=== PATIENT | male | born 1995 | race African-American/Black ===

== ENCOUNTER 2017-07-01 18:01 | Emergency (ER) | payer BC, OTHER ==
--- NOTE | 2017-07-01 19:39 | EDPHYS ---
Physician Documentation [facility] Name: Sudarshan Loya Age: 22 yrs Sex: Male : 1995 Arrival Date: 07/01/2017 Time: 18:06 Bed 13 Private MD: None, None ED Physician Charlie De Leon HPI: 07/01 20:17 This 22 yrs old Black Male presents to ER via Ambulatory with complaints of Sore Throat.snw 20:17 The patient presents with sore throat. The patient describes throat pain as scratchy. snw Onset: The symptoms/episode began/occurred suddenly, 2 day(s) ago, and became persistent. Severity of symptoms: At their worst the symptoms were moderate. Modifying factors: The symptoms are alleviated by nothing, the symptoms are aggravated by swallowing, Patient's oral intake status: good. Associated signs and symptoms: The patient has no apparent associated signs or symptoms. The patient has not experienced similar symptoms in the past. The patient has not recently seen a physician. Historical: - Allergies: 18:09 No Known Allergies; hj - Home Meds: 18:09 None [Active]; hj - PMHx: 18:09 None; hj - PSHx: 18:09 wrist; hj - Immunization history:: Adult Immunizations up to date. - Social history:: Smoking status: Patient/guardian denies using tobacco. ROS: 20:14 Constitutional: Negative for fever, chills, and weight loss, Eyes: Negative for injury, snw pain, redness, and discharge, ENT: Negative for injury and discharge, + congestion down posterior throat Neck: Negative for injury, pain, and swelling, Cardiovascular: Negative for chest pain, palpitations, and edema, Respiratory: Negative for shortness of breath, cough, wheezing, and pleuritic chest pain, Abdomen/GI: Negative for abdominal pain, nausea, vomiting, diarrhea, and constipation, Back: Negative for injury and pain, : Negative for injury, bleeding, discharge, and swelling, MS/Extremity: Negative for injury and deformity, Skin: Negative for injury, rash, and discoloration, Neuro: Negative for headache, weakness, numbness, tingling, and seizure. Exam: 20:14 Constitutional: This is a well developed, well nourished patient who is awake, alert, snw and in no acute distress. Head/Face: Normocephalic, atraumatic. Eyes: Pupils equal round and reactive to light, extra-ocular motions intact. Lids and lashes normal. Conjunctiva and sclera are non-icteric and not injected. Cornea within normal limits. Periorbital areas with no swelling, redness, or edema. Neck: Trachea midline, no thyromegaly or masses palpated, and no cervical lymphadenopathy. Supple, full range of motion without nuchal rigidity, or vertebral point tenderness. No Meningismus. Chest/axilla: Normal chest wall appearance and motion. Nontender with no deformity. No lesions are appreciated. Cardiovascular: Regular rate and rhythm with a normal S1 and S2. No gallops, murmurs, or rubs. Normal PMI, no JVD. No pulse deficits. Respiratory: Lungs have equal breath sounds bilaterally, clear to auscultation and percussion. No rales, rhonchi or wheezes noted. No increased work of breathing, no retractions or nasal flaring. Abdomen/GI: Soft, non-tender, with normal bowel sounds. No distension or tympany. No guarding or rebound. No evidence of tenderness throughout. Back: No spinal tenderness. No costovertebral tenderness. Full range of motion. Skin: Warm, dry with normal turgor. Normal color with no rashes, no lesions, and no evidence of cellulitis. MS/ Extremity: Pulses equal, no cyanosis. Neurovascular intact. Full, normal range of motion. Neuro: Awake and alert, GCS 15, oriented to person, place, time, and situation. Cranial nerves II-XII grossly intact. Motor strength 5/5 in all extremities. Sensory grossly intact. Cerebellar exam normal. Normal gait. 20:14 ENT: External ear(s): are unremarkable, TM's: are normal, Nose: is normal, Mouth: is normal, Posterior pharynx: Uvula: edematous, erythema, Voice: is normal. Vital Signs: 18:10 BP 135 / 81; Pulse 75; Resp 18; Temp 98.4(TE); Pulse Ox 97% on R/A; Weight 129.27 kg; hj Height 6 ft. 1 in. (185.42 cm); Pain 1/10; 19:10 BP 137 / 78; Pulse 71; Resp 18; Pulse Ox 99% ; mh5 20:03 BP 134 / 60; Pulse 69; Resp 18; Pulse Ox 97% ; aj1 18:10 Body Mass Index 37.60 (129.27 kg, 185.42 cm) MDM: 19:26 Patient medically screened. snw 20:16 Data reviewed: vital signs, nurses notes. Data interpreted: Pulse oximetry: on room air snw is 97 %. Interpretation: normal. Counseling: I had a detailed discussion with the patient and/or guardian regarding: the historical points, exam findings, and any diagnostic results supporting the discharge/admit diagnosis, lab results, the need for outpatient follow up, for definitive care, to return to the emergency department if symptoms worsen or persist or if there are any questions or concerns that arise at home. Special discussion: Based on the history and exam findings, there is no indication for further emergent testing or inpatient evaluation. I discussed with the patient/guardian the need to see the ENT specialist for further evaluation of the symptoms. I discussed with the patient/guardian the need to see the primary care provider for further evaluation of the symptoms. 07/01 18:11 Order name: Strep; Complete Time: 19:02 07/01 18:47 Order name: Throat Culture EDMS Administered Medications: 19:58 Drug: predniSONE 60 mg Route: PO; bs1 19:58 Drug: Pepcid 20 mg Route: PO; bs1 19:58 Drug: ZyrTEC - Cetirizine 10 mg Route: PO; bs1 Disposition: 07/01/17 19:38 Discharged to Home. Impression: Acute pharyngitis. - Condition is Stable. - Discharge Instructions: Pharyngitis, Salt Water Gargle, Rehydration, Adult. - Prescriptions for Prednisone 20 mg Oral Tablet - take 1 tablet by ORAL route every 12 hours for 5 days; 10 tablet. Zyrtec 10 mg Oral Tablet - take 1 tablet by ORAL route once daily As needed; 20 tablet. - Medication Reconciliation Form, Thank You Letter, Antibiotic Education, Prescription Opioid Use form. - Follow up: Private Physician; When: 2 - 3 days; Reason: Recheck today's complaints, Continuance of care, Re-evaluation by your physician. Follow up: Emergency Department; When: As needed; Reason: Worsening of condition. Addendum: 07/04/2017 06:21 Co-signature as Attending Physician, Charlie De Leon MD Available for consultation at p s1 all times. . Signatures: Dispatcher [employer] Codie Abrahma RN RN aj1 Fany Zambrano, FRONT END WEB DEVELOPER-C FRONT END WEB DEVELOPER-Csnw Juan J Cazares RN RN hj Charlie De Leon MD MD ps1 Yennifer Starkey RN RN bs1
--- NOTE | 2017-07-01 19:39 | ER ---
Nurse's Notes [facility] Name: Sudarshan Loya Age: 22 yrs Sex: Male : 1995 Arrival Date: 07/01/2017 Time: 18:06 Bed 13 Private MD: None, None Diagnosis: Acute pharyngitis Presentation: 07/01 18:08 Presenting complaint: Patient states: i have pain on my throat since Thursday, like hj sore throat; denies fever and chills;. Transition of care: patient was not received from another setting of care. Onset of symptoms was July 01, 2017. Initial Sepsis Screen: Does the patient meet any 2 criteria? No. Patient's initial sepsis screen is negative. Does the patient have a suspected source of infection? No. Patient's initial sepsis screen is negative. Care prior to arrival: None. 18:08 Method Of Arrival: Ambulatory 18:08 Acuity: DARWIN 4 hj Triage Assessment: 18:09 General: Appears in no apparent distress. uncomfortable, Behavior is calm, cooperative, hj appropriate for age. Pain: Complains of pain in throat. EENT: Reports pain when swallowing. Historical: - Allergies: 18:09 No Known Allergies; hj - Home Meds: 18:09 None [Active]; hj - PMHx: 18:09 None; hj - PSHx: 18:09 wrist; hj - Immunization history:: Adult Immunizations up to date. - Social history:: Smoking status: Patient/guardian denies using tobacco. Screenin:15 Abuse screen: Denies threats or abuse. Denies injuries from another. Nutritional aj1 screening: No deficits noted. Tuberculosis screening: No symptoms or risk factors identified. Fall Risk None identified. Assessment: 18:10 Respiratory: Airway is patent Respiratory effort is even, unlabored, Respiratory hj pattern is regular, symmetrical, Breath sounds are clear. EENT: Throat. 19:15 General: Appears in no apparent distress. uncomfortable, Behavior is calm, cooperative, aj1 appropriate for age. Pain: Complains of pain in left aspect of posterior pharynx and right aspect of posterior pharynx Pain does not radiate. Pain currently is 6 out of 10 on a pain scale. Neuro: Level of Consciousness is awake, alert, obeys commands, Oriented to person, place, time, situation, Speech is normal, Facial symmetry appears normal. Cardiovascular: Patient's skin is warm and dry. Respiratory: Airway is patent Respiratory effort is even, unlabored, Respiratory pattern is regular, symmetrical, Breath sounds are clear bilaterally. GI: No signs and/or symptoms were reported involving the gastrointestinal system. : No signs and/or symptoms were reported regarding the genitourinary system. EENT: Throat is reddened has enlarged tonsils bilaterally. Derm: No signs and/or symptoms reported regarding the dermatologic system. Skin is pink, warm \T\ dry. normal. Musculoskeletal: No signs and/or symptoms reported regarding the musculoskeletal system. Circulation, motion, and sensation intact. 20:03 Reassessment: Patient appears in no apparent distress at this time. No changes from [facility] previously documented assessment. Patient and/or family updated on plan of care and expected duration. Pain level reassessed. Patient is alert, oriented x 3, equal unlabored respirations, skin warm/dry/pink. Vital Signs: 18:10 BP 135 / 81; Pulse 75; Resp 18; Temp 98.4(TE); Pulse Ox 97% on R/A; Weight 129.27 kg; hj Height 6 ft. 1 in. (185.42 cm); Pain 1/10; 19:10 BP 137 / 78; Pulse 71; Resp 18; Pulse Ox 99% ; mh5 20:03 BP 134 / 60; Pulse 69; Resp 18; Pulse Ox 97% ; aj1 18:10 Body Mass Index 37.60 (129.27 kg, 185.42 cm) ED Course: 18:06 Patient arrived in ED. mr 18:06 None, None is Private Physician. mr 18:09 Triage completed. hj 18:10 Arm band placed on right wrist. hj 19:01 Fany Zambrano FNP-C is PHCP. snw 19:01 Charlie De Leon MD is Attending Physician. snw 19:13 Codie Hidalgo, PERRY is Primary Nurse. aj1 19:14 Charlie De Leon MD is Attending Physician. snw 19:15 Patient has correct armband on for positive identification. Bed in low position. Call aj1 light in reach. Side rails up X 1. 19:15 No provider procedures requiring assistance completed. aj1 20:03 Patient did not have IV access during this emergency room visit. aj1 Administered Medications: 19:58 Drug: predniSONE 60 mg Route: PO; bs1 19:58 Drug: Pepcid 20 mg Route: PO; bs1 19:58 Drug: ZyrTEC - Cetirizine 10 mg Route: PO; bs1 Outcome: 19:38 Discharge ordered by . snw 20:12 Discharged to home ambulatory. aj1 20:12 Condition: good 20:12 Discharge instructions given to patient, Instructed on discharge instructions, follow up and referral plans. medication usage, Demonstrated understanding of instructions, follow-up care, medications, Prescriptions given X 2. 20:13 Patient left the ED. aj1 Signatures: Codie Hidalgo RN RN aj1 Fany Zambrano, VICE PRESIDENT OF RECRUITING-C VICE PRESIDENT OF RECRUITING-CsnJanina Mcmillan Henry, RN RN Janina Palma Yennifer Lnua RN RN bs1 Corrections: (The following items were deleted from the chart) 18:12 18:10 Pulse 81bpm; Resp 18bpm; Pulse Ox 100% RA; Temp 98.4F Temporal; 129.27 kg; Height hj 6 ft. 1 in.; BMI: 37.6; Pain 1/10; hj 18:13 18:10 Pulse 81bpm; Resp 18bpm; Pulse Ox 100% RA; Temp 98.4F Temporal; 129.27 kg; Height hj 6 ft. 1 in.; BMI: 37.6; Pain 1/10; hj
[2017-07-01] MEDS ORDERED: CETIRIZINE HCL 5 MG TABLET ONE (19:54)
[2017-07-01] MEDS ORDERED: predniSONE 20 MG TAB ONE (19:55)
[2017-07-01] MEDS ORDERED: FAMOTIDINE 20 MG TAB ONE (19:55)
[2017-07-01 20:17] VITALS: TEMP 98.4
[2017-07-01 20:20] VITALS: BP 134/60; O2SAT 97
== END 2017-07-01 20:13 | disposition home or self-care (01) ==
LOC: ER 18:01
DX: J02.9 Acute pharyngitis, unspecified (principal)
CPT/HCPCS: 87070; 87081; 99283; J7512

== ENCOUNTER 2017-10-28 13:42 | Emergency (ER) | payer BC ==
--- NOTE | 2017-10-28 13:56 | EDPHYS ---
Physician Documentation [facility] Name: Sudarshan Loya Age: 22 yrs Sex: Male : 1995 Arrival Date: 10/28/2017 Time: 13:44 Bed 11 Private MD: ED Physician Sumeet Fernandez HPI: 10/28 13:54 This 22 yrs old Black Male presents to ER via Ambulatory with complaints of NEEDS WORK jr8 NOTE/RELEASE. 13:54 The patient presents to the emergency department with nausea, vomiting. Onset: The jr8 symptoms/episode began/occurred acutely, this morning. Possible causes: unknown. The symptoms are aggravated by nothing. The symptoms are alleviated by nothing. Associated signs and symptoms: The patient has no apparent associated signs or symptoms. Severity of symptoms: At their worst the symptoms were very mild in the emergency department the symptoms have resolved. The patient has not experienced similar symptoms in the past. The patient has not recently seen a physician. Stated that he had vomited once this AM and was sent home from work and told he could not return until released by doctor. Came to ED to get note . Historical: - Allergies: 13:46 No Known Allergies; sg - Home Meds: 13:46 None [Active]; sg - PMHx: 13:46 None; sg - PSHx: 13:46 wrist; sg - Immunization history:: Adult Immunizations not up to date. - Social history:: Smoking status: unknown. - Ebola Screening: : Patient negative for fever greater than or equal to 101.5 degrees Fahrenheit, and additional compatible Ebola Virus Disease symptoms Patient denies exposure to infectious person Patient denies travel to an Ebola-affected area in the 21 days before illness onset No symptoms or risks identified at this time. ROS: 13:54 Eyes: Negative for injury, pain, redness, and discharge, ENT: Negative for injury, jr8 pain, and discharge, Neck: Negative for injury, pain, and swelling, Cardiovascular: Negative for chest pain, palpitations, and edema, Respiratory: Negative for shortness of breath, cough, wheezing, and pleuritic chest pain, Back: Negative for injury and pain, MS/Extremity: Negative for injury and deformity, Skin: Negative for injury, rash, and discoloration, Neuro: Negative for headache, weakness, numbness, tingling, and seizure. 13:54 Abdomen/GI: Positive for nausea and vomiting, Negative for abdominal pain, diarrhea, constipation, abdominal cramps, abdominal distension, anorexia, dysphagia, hematemesis, black/tarry stool, rectal pain, rectal bleeding, bowel incontinence, flatulence. Exam: 13:54 Eyes: Pupils equal round and reactive to light, extra-ocular motions intact. Lids and jr8 lashes normal. Conjunctiva and sclera are non-icteric and not injected. Cornea within normal limits. Periorbital areas with no swelling, redness, or edema. ENT: Nares patent. No nasal discharge, no septal abnormalities noted. Tympanic membranes are normal and external auditory canals are clear. Oropharynx with no redness, swelling, or masses, exudates, or evidence of obstruction, uvula midline. Mucous membranes moist. Neck: Trachea midline, no thyromegaly or masses palpated, and no cervical lymphadenopathy. Supple, full range of motion without nuchal rigidity, or vertebral point tenderness. No Meningismus. Cardiovascular: Regular rate and rhythm with a normal S1 and S2. No gallops, murmurs, or rubs. Normal PMI, no JVD. No pulse deficits. Respiratory: Lungs have equal breath sounds bilaterally, clear to auscultation and percussion. No rales, rhonchi or wheezes noted. No increased work of breathing, no retractions or nasal flaring. Abdomen/GI: Soft, non-tender, with normal bowel sounds. No distension or tympany. No guarding or rebound. No evidence of tenderness throughout. Back: No spinal tenderness. No costovertebral tenderness. Full range of motion. Skin: Warm, dry with normal turgor. Normal color with no rashes, no lesions, and no evidence of cellulitis. MS/ Extremity: Pulses equal, no cyanosis. Neurovascular intact. Full, normal range of motion. Neuro: Awake and alert, GCS 15, oriented to person, place, time, and situation. Cranial nerves II-XII grossly intact. Motor strength 5/5 in all extremities. Sensory grossly intact. Cerebellar exam normal. Normal gait. Vital Signs: 13:52 BP 128 / 84; Pulse 68; Resp 17; Pulse Ox 98% on R/A; Weight 97.52 kg (R); Pain 0/10; sg MDM: 13:53 Patient medically screened. jr8 13:54 Data reviewed: vital signs, nurses notes, and as a result, I will discharge patient. jr8 Data interpreted: Pulse oximetry: on room air is 98 %. Interpretation: normal. Counseling: I had a detailed discussion with the patient and/or guardian regarding: the historical points, exam findings, and any diagnostic results supporting the discharge/admit diagnosis, the need for outpatient follow up, a family practitioner, to return to the emergency department if symptoms worsen or persist or if there are any questions or concerns that arise at home. Administered Medications: No medications were administered Disposition: 14:47 Co-signature as Attending Physician, Sumeet Fernandez MD I agree with the assessment and kdr plan of care. Disposition: 10/28/17 13:55 Discharged to Home. Impression: Vomiting. - Condition is Stable. - Discharge Instructions: Nausea and Vomiting, Adult. - Work release form, Medication Reconciliation Form, Thank You Letter, Antibiotic Education, Prescription Opioid Use form. - Follow up: Private Physician; When: As needed; Reason: Recheck today's complaints, Continuance of care, Re-evaluation by your physician. - Problem is new. - Symptoms have improved. Signatures: Ottoniel Morillo RN RN Sumeet Fernandez MD MD [facility] Jacqueline Dykes RN RN Rodrigue Mcgregor PA PA jr8 Corrections: (The following items were deleted from the chart) 14:22 13:55 10/28/2017 13:55 Discharged to Home. Impression: Vomiting. Condition is Stable. ss Forms are Medication Reconciliation Form, Thank You Letter, Antibiotic Education, Prescription Opioid Use. Follow up: Private Physician; When: As needed; Reason: Recheck today's complaints, Continuance of care, Re-evaluation by your physician. Problem is new. Symptoms have improved. jr8
--- NOTE | 2017-10-28 13:56 | ER ---
Nurse's Notes [facility] Name: Sudarshan Loya Age: 22 yrs Sex: Male : 1995 Arrival Date: 10/28/2017 Time: 13:44 Bed 11 Private MD: Diagnosis: Vomiting Presentation: 10/28 13:45 Acuity: DARWIN 5 sg 13:46 Presenting complaint: Patient states: I was sent home this morning, because I vomitedx1 sg at work, I think it must have been something I ate. Now I cant go back to work until I see a doctor and get a work excuse. Transition of care: patient was not received from another setting of care. Onset of symptoms was October 28, 2017. Risk Assessment: Do you want to hurt yourself or someone else? Patient reports no desire to harm self or others. Initial Sepsis Screen: Does the patient meet any 2 criteria? No. Patient's initial sepsis screen is negative. Does the patient have a suspected source of infection? No. Patient's initial sepsis screen is negative. Care prior to arrival: None. 13:46 Method Of Arrival: Ambulatory sg Historical: - Allergies: 13:46 No Known Allergies; sg - Home Meds: 13:46 None [Active]; sg - PMHx: 13:46 None; sg - PSHx: 13:46 wrist; sg - Immunization history:: Adult Immunizations not up to date. - Social history:: Smoking status: unknown. - Ebola Screening: : Patient negative for fever greater than or equal to 101.5 degrees Fahrenheit, and additional compatible Ebola Virus Disease symptoms Patient denies exposure to infectious person Patient denies travel to an Ebola-affected area in the 21 days before illness onset No symptoms or risks identified at this time. Screenin:53 Abuse screen: Denies threats or abuse. Denies injuries from another. Nutritional sg screening: No deficits noted. Tuberculosis screening: No symptoms or risk factors identified. Never had TB. Fall Risk None identified. Assessment: 13:52 General: Appears in no apparent distress. comfortable, well groomed, well developed, sg well nourished, Behavior is calm, cooperative, appropriate for age. Pain: Denies pain. Neuro: No deficits noted. Cardiovascular: Heart tones S1 S2 present Capillary refill is brisk in bilateral fingers Patient's skin is warm and dry. Chest pain is denied. Respiratory: Airway is patent Respiratory effort is even, unlabored, Respiratory pattern is regular, symmetrical, Denies cough, shortness of breath labored breathing, pain with respiration, pain with cough, pain with movement, air hunger. GI: Abdomen is flat, non-distended, Bowel sounds present X 4 quads. Abd is soft and non tender X 4 quads. Reports vomiting, Patient currently denies abdominal pain, diarrhea, intolerance of fluids, intolerance of food, nausea, pain. : No signs and/or symptoms were reported regarding the genitourinary system. EENT: No signs and/or symptoms were reported regarding the EENT system. Derm: Skin is pink, warm \T\ dry. Musculoskeletal: No deficits noted. No signs and/or symptoms reported regarding the musculoskeletal system. Vital Signs: 13:52 BP 128 / 84; Pulse 68; Resp 17; Pulse Ox 98% on R/A; Weight 97.52 kg (R); Pain 0/10; sg ED Course: 13:44 Patient arrived in ED. rg4 13:45 Triage completed. sg 13:46 Arm band placed on. sg 13:49 Rodrigue Mcgregor PA is PHCP. jr8 13:49 Sumeet Fernandez MD is Attending Physician. jr8 13:52 Ottoniel Morillo RN is Primary Nurse. sg 13:53 No provider procedures requiring assistance completed. sg Administered Medications: No medications were administered Outcome: 13:55 Discharge ordered by . jr8 14:22 Patient left the ED. Signatures: Ottoniel Morillo RN RN Jacqueline Dykes RN RN Rodrigue Mcgregor PA PA Aminata Hernandez rg4
[2017-10-28 14:39] VITALS: BP 128/84; O2SAT 98
== END 2017-10-28 14:22 | disposition home or self-care (01) ==
LOC: ER 13:42
DX: R11.10 Vomiting, unspecified (principal)
CPT/HCPCS: 99281

== ENCOUNTER 2018-02-08 12:35 | Emergency (ER) | payer BC, SELFPAY ==
[2018-02-08] MEDS ORDERED: IBUPROFEN 400 MG TAB ONE (14:35)
[2018-02-08] MEDS ORDERED: DEXAMETHASONE 4 MG/ML VIAL ONE (16:07)
--- NOTE | 2018-02-08 16:32 | EDPHYS ---
Physician Documentation [facility] Name: Sudarshan Loya Age: 22 yrs Sex: Male : 1995 Arrival Date: 02/08/2018 Time: 12:38 Bed 12 Private MD: None, None ED Physician Chip Collins HPI: 02/08 14:17 This 22 yrs old Black Male presents to ER via Ambulatory with complaints of Flu jmm Symptoms. 14:17 The patient presents with sore throat. Onset: The symptoms/episode began/occurred jmm gradually, 1 day(s) ago. Modifying factors: The symptoms are alleviated by nothing, the symptoms are aggravated by nothing. Associated signs and symptoms: Pertinent positives: fever, Pertinent negatives cough. Historical: - Allergies: 12:48 NKA; iw - Home Meds: 12:48 None [Active]; iw - PMHx: 12:48 ADD/ADHD; iw - PSHx: 12:48 left wrist; iw - Immunization history:: Adult Immunizations not up to date. - Social history:: Smoking status: Patient/guardian denies using tobacco. - Ebola Screening: : Patient negative for fever greater than or equal to 101.5 degrees Fahrenheit, and additional compatible Ebola Virus Disease symptoms Patient denies exposure to infectious person Patient denies travel to an Ebola-affected area in the 21 days before illness onset No symptoms or risks identified at this time. ROS: 14:17 Neck: Negative for injury, pain, and swelling, Cardiovascular: Negative for chest pain, jmm palpitations, and edema, Respiratory: Negative for shortness of breath, cough, wheezing, and pleuritic chest pain, Abdomen/GI: Negative for abdominal pain, nausea, vomiting, diarrhea, and constipation. 14:17 Constitutional: Positive for fever. 14:17 ENT: Positive for sore throat. 14:17 All other systems are negative. Exam: 14:17 Constitutional: This is a well developed, well nourished patient who is awake, alert, jmm and in no acute distress. Head/Face: atraumatic. 14:17 Chest/axilla: Normal chest wall appearance and motion. 14:17 ENT: Posterior pharynx: erythema, that is mild. 14:17 Neck: ROM/movement: is normal, is supple. 14:17 Cardiovascular: Rate: normal, Rhythm: regular, Pulses: no pulse deficits are appreciated. 14:17 Respiratory: the patient does not display signs of respiratory distress, Respirations: normal, Breath sounds: are clear throughout. 14:17 Abdomen/GI: Inspection: abdomen appears normal, Bowel sounds: normal, Palpation: abdomen is soft and non-tender. 14:17 Back: ROM is normal. 14:17 Musculoskeletal/extremity: ROM: intact in all extremities. 14:17 Skin: Appearance: Color: normal in color. 14:17 Neuro: Orientation: is normal, Mentation: is normal, Memory: is normal. 14:17 Psych: Behavior/mood is pleasant, cooperative. Vital Signs: 12:48 BP 138 / 76; Pulse 102; Resp 16 S; Temp 99.9(TE); Pulse Ox 100% on R/A; Weight 108.86 iw kg; Height 6 ft. 1 in. (185.42 cm); Pain 0/10; 15:37 BP 132 / 65; Resp 18; Temp 98.9(TE); mg2 12:48 Body Mass Index 31.66 (108.86 kg, 185.42 cm) iw MDM: 14:17 Patient medically screened. [facility] 16:30 Data reviewed: vital signs, nurses notes. Counseling: I had a detailed discussion with [facility] the patient and/or guardian regarding: the historical points, exam findings, and any diagnostic results supporting the discharge/admit diagnosis, lab results, the need for outpatient follow up, to return to the emergency department if symptoms worsen or persist or if there are any questions or concerns that arise at home. 16:30 Data interpreted: Pulse oximetry: on room air is 100 %. [facility] 16:30 Counseling: I had a detailed discussion with the patient and/or guardian regarding: the [facility] presence of at least one elevated blood pressure reading (>120/80) during this emergency department visit. 02/08 14:17 Order name: Strep; Complete Time: 15:45 [facility] 02/08 14:17 Order name: Flu; Complete Time: 15:45 [facility] 02/08 15:08 Order name: Throat Culture EDMS Administered Medications: 14:31 Drug: Motrin 800 mg Route: PO; sg 15:33 Follow up: Response: No adverse reaction; Marked relief of symptoms mg2 16:10 Drug: Dexamethasone 10 mg Route: IM; Site: right gluteus; mg2 16:10 Follow up: Response: No adverse reaction; Medication administered at discharge. mg2 Disposition: 17:36 Co-signature as Attending Physician, Chip Collins MD. rn Disposition: 02/08/18 16:31 Discharged to Home. Impression: Acute pharyngitis. - Condition is Stable. - Discharge Instructions: Pharyngitis. - Medication Reconciliation Form, Thank You Letter, Antibiotic Education, Prescription Opioid Use, Work release form form. - Follow up: Private Physician; When: 2 - 3 days; Reason: Recheck today's complaints, Continuance of care, Re-evaluation by your physician. Signatures: Dispatcher [employer] EDOttoniel Palumbo, RN RN Chuy Ralph PA PA jmm Williams, Irene, RN RN Chip Jon MD MD rn Gardose, Michele, RN RN mg2 Corrections: (The following items were deleted from the chart) 16:38 16:31 02/08/2018 16:31 Discharged to Home. Impression: Acute pharyngitis. Condition is mg2 Stable. Forms are Medication Reconciliation Form, Thank You Letter, Antibiotic Education, Prescription Opioid Use. Follow up: Private Physician; When: 2 - 3 days; Reason: Recheck today's complaints, Continuance of care, Re-evaluation by your physician. brandon
--- NOTE | 2018-02-08 16:32 | ER ---
Nurse's Notes [facility] Name: Sudarshan Loya Age: 22 yrs Sex: Male : 1995 Arrival Date: 02/08/2018 Time: 12:38 Bed 12 Private MD: None, None Diagnosis: Acute pharyngitis Presentation: 02/08 12:47 Presenting complaint: Patient states: sore throat, coughing mucous, head throbbing, iw left work, told them he'd come back Thursday, denies fever. Transition of care: patient was not received from another setting of care. Onset of symptoms was February 07, 2018. Risk Assessment: Do you want to hurt yourself or someone else? Patient reports no desire to harm self or others. Initial Sepsis Screen: Does the patient meet any 2 criteria? No. Patient's initial sepsis screen is negative. Does the patient have a suspected source of infection? No. Patient's initial sepsis screen is negative. Care prior to arrival: None. 12:47 Method Of Arrival: Ambulatory iw 12:47 Acuity: DARWIN 4 iw Triage Assessment: 16:37 General: Appears in no apparent distress. comfortable, Behavior is calm. Pain: mg2 Complains of pain in throat. Historical: - Allergies: 12:48 NKA; iw - Home Meds: 12:48 None [Active]; iw - PMHx: 12:48 ADD/ADHD; iw - PSHx: 12:48 left wrist; iw - Immunization history:: Adult Immunizations not up to date. - Social history:: Smoking status: Patient/guardian denies using tobacco. - Ebola Screening: : Patient negative for fever greater than or equal to 101.5 degrees Fahrenheit, and additional compatible Ebola Virus Disease symptoms Patient denies exposure to infectious person Patient denies travel to an Ebola-affected area in the 21 days before illness onset No symptoms or risks identified at this time. Screenin:25 Abuse screen: Denies threats or abuse. Denies injuries from another. Nutritional mg2 screening: No deficits noted. Tuberculosis screening: No symptoms or risk factors identified. Fall Risk None identified. Assessment: 13:40 General: Appears in no apparent distress. comfortable, well groomed, well developed, sg well nourished, Behavior is calm, cooperative, appropriate for age. Neuro: No deficits noted. Cardiovascular: No deficits noted. Respiratory: Airway is patent Respiratory effort is even, unlabored, Respiratory pattern is regular, symmetrical, Denies cough, shortness of breath. GI: No signs and/or symptoms were reported involving the gastrointestinal system. : No signs and/or symptoms were reported regarding the genitourinary system. EENT: Nares are clear bilaterally Oral mucosa is moist. Throat is reddened has enlarged tonsils on left. Derm: Skin is intact, is healthy with good turgor, Skin is dry, Skin is normal. Musculoskeletal: Circulation, motion, and sensation intact. Range of motion: intact in all extremities, Swelling absent. 15:25 Reassessment: No changes from previously documented assessment. mg2 Vital Signs: 12:48 BP 138 / 76; Pulse 102; Resp 16 S; Temp 99.9(TE); Pulse Ox 100% on R/A; Weight 108.86 iw kg; Height 6 ft. 1 in. (185.42 cm); Pain 0/10; 15:37 BP 132 / 65; Resp 18; Temp 98.9(TE); mg2 12:48 Body Mass Index 31.66 (108.86 kg, 185.42 cm) iw ED Course: 12:38 Patient arrived in ED. sb2 12:38 None, None is Private Physician. sb2 12:48 Triage completed. iw 12:48 Arm band placed on. iw 13:43 Chuy Garcia PA is PHCP. [facility] 13:43 Chip Collins MD is Attending Physician. jm 14:23 Ottoniel Morillo, RN is Primary Nurse. sg 14:31 Patient has correct armband on for positive identification. sg 14:31 Flu and/or RSV swab sent to lab. Strep swab sent to lab. sg 16:37 No provider procedures requiring assistance completed. Patient did not have IV access mg2 during this emergency room visit. Administered Medications: 14:31 Drug: Motrin 800 mg Route: PO; sg 15:33 Follow up: Response: No adverse reaction; Marked relief of symptoms mg2 16:10 Drug: Dexamethasone 10 mg Route: IM; Site: right gluteus; mg2 16:10 Follow up: Response: No adverse reaction; Medication administered at discharge. mg2 Outcome: 16:31 Discharge ordered by . [facility] 16:37 Discharged to home ambulatory, with family. mg2 16:37 Condition: stable 16:37 Discharge instructions given to patient, family, Instructed on discharge instructions, follow up and referral plans. Demonstrated understanding of instructions, follow-up care. 16:38 Patient left the ED. mg2 Signatures: Ottoniel Morillo, RN RN Chuy Ralph PA PA jmm Williams, Irene, RN RN iw Lorene Contreras sb2 Rajan Luke RN RN mg2
[2018-02-08 21:56] VITALS: TEMP 98.1; O2SAT 100
[2018-02-08 21:57] VITALS: BP 146/79
== END 2018-02-08 16:38 | disposition home or self-care (01) ==
LOC: ER 12:35
DX: J02.9 Acute pharyngitis, unspecified (principal)
CPT/HCPCS: 87070; 87081; 87804; 96372; 99283